=== PATIENT | male | born 1950 | race Caucasian/White ===

== ENCOUNTER 2016-12-20 12:40 | Inpatient (IN) | payer MEDICAID ==
[~2016-12-20] VITALS: Ht 170.2 cm; Wt 66.1 kg
[~2016-12-20 12:40] MED LIST: METO50TA PO; PRED5TAB PO
[2016-12-20 12:57] VITALS: BP 148/60; PULSE 83; RESP 22; TEMP 98.2; O2SAT 96
[2016-12-20 13:48] LABS: AUTOMATED NEUTROPHIL # 8.1 TH/MM3 (1.8-7.7); BASOPHIL # 0.1 TH/MM3 (0-0.2); BASOPHIL % 0.6 % (0.0-2.0); EOSINOPHIL # 0.2 TH/MM3 (0-0.4); EOSINOPHIL % 1.7 % (0.0-4.0); HEMATOCRIT 30.5 % (39.0-51.0); HEMO FLAGS DIFF FINAL; LYMPH % 5.4 % (9.0-44.0); LYMPHOCYTE # 0.5 TH/MM3 (1.0-4.8); MEAN CELL VOLUME 99.8 FL (80.0-100.0); MEAN CORPUSCULAR HEMOGLOBIN 33.4 PG (27.0-34.0); MEAN CORPUSCULAR HGB CONC 33.5 % (32.0-36.0); MONO % 8.3 % (0.0-8.0); PLATELET COUNT 262 TH/MM3 (150-450); RED BLOOD COUNT 3.05 MIL/MM3 (4.50-5.90); RED CELL DISTRIBUTION WIDTH 15.5 % (11.6-17.2); WHITE BLOOD COUNT 9.7 TH/MM3 (4.0-11.0)
[2016-12-20 14:04] LABS: ANION GAP 14 MEQ/L (5-15); AST (GOT) 52 U/L (15-37); BICARBONATE 24.6 MEQ/L (21.0-32.0); BLOOD UREA NITROGEN 39 MG/DL (7-18); CHLORIDE 99 MEQ/L (98-107); GLOMERULAR FILTRATION RATE 66 ML/MIN (>89); SODIUM (NA) 138 MEQ/L (136-145)
[2016-12-20 14:08] LABS: ALKALINE PHOSPHATASE 77 U/L (45-117); ALT (GPT) 23 U/L (12-78); TOTAL BILIRUBIN ADULT 0.6 MG/DL (0.2-1.0)
--- NOTE | 2016-12-20 14:08 | PD ---
HPI Chief Complaint: Pain: Acute or Chronic Time Seen by Provider: 14:08 Travel History International Travel<30 days: No Contact w/Intl Traveler<30days: No Traveled to known affect area: No History of Present Illness HPI 66-year-old male with history of A. fib, hypertension, alcoholism, presents to the emergency department for evaluation of redness, swelling, and painful joints. Patient states that he does have a history of gout but this seems to be worse than typical exacerbation. Patient reports inability to ambulate secondary to the pain. He states his had subjective fever and chills. He has overall not felt well. Denies any nausea or vomiting. No focal deficits. No recollection of injury. He has no other symptoms to report at this time. [facility] Past Medical History Atrial Fibrillation: Yes Gout: Yes (new) Hypertension: Yes Tetanus Vaccination: < 5 Years Past Surgical History Abdominal Surgery: Yes (hernia repair ) Other Surgery: Yes (DVT R leg with filter ) Social History Alcohol Use: Yes ("750 ml of vodka daily" ) Tobacco Use: No Allergies-Medications (Allergen,Severity, Reaction): Coded Allergies: No Known Allergies (Unverified , 12/20/16) Reported Meds & Prescriptions Reported Meds & Active Scripts Active Review of Systems Except as stated in HPI: all other systems reviewed are Neg Physical Exam Narrative GENERAL: Unkempt male patient, lying in bed in no acute distress SKIN: Warm and dry. Erythema and edema around the right hallux and on the PIP of the right second digit. There is palpable effusion of the left knee. There is also an erythematous painful nodule on the right second digit. No fluctuation. Patient has multiple scabbed lesions on the bilateral lower extremities. HEAD: Atraumatic. Normocephalic. EYES: Pupils equal and round. No scleral icterus. No injection or drainage. ENT: No nasal bleeding or discharge. Mucous membranes pink and moist. NECK: Trachea midline. No JVD. CARDIOVASCULAR: Regular rate and rhythm. No murmur appreciated. RESPIRATORY: No accessory muscle use. Diminished to auscultation. Breath sounds equal bilaterally. GASTROINTESTINAL: Abdomen soft, non-tender, nondistended. Hepatic and splenic margins not palpable. MUSCULOSKELETAL: No obvious deformities. No clubbing. No cyanosis. No edema. NEUROLOGICAL: Awake and alert. No obvious cranial nerve deficits. Motor grossly within normal limits. Normal speech. Data Data Last Documented VS Vital Signs Date Time Temp Pulse Resp B/P Pulse Ox O2 Delivery O2 Flow Rate FiO2 12/20/16 12:57 98.2 83 22 148/60 96 Orders Complete Blood Count With Diff (12/20/16 13:22) Comprehensive Metabolic Panel (12/20/16 13:22) Lactic Acid Sepsis Protocol (12/20/16 13:22) Iv Access Insert/Monitor (12/20/16 13:22) Uric Acid (12/20/16 13:55) Westergren Sedimentation Rate (12/20/16 13:55) Blood Culture (12/20/16 13:55) Labs Laboratory Tests Test 12/20/16 13:23 White Blood Count 9.7 TH/MM3 Red Blood Count 3.05 MIL/MM3 Hemoglobin 10.2 GM/DL Hematocrit 30.5 % Mean Corpuscular Volume 99.8 FL Mean Corpuscular Hemoglobin 33.4 PG Mean Corpuscular Hemoglobin 33.5 % Concent Red Cell Distribution Width 15.5 % Platelet Count 262 TH/MM3 Mean Platelet Volume 10.8 FL Neutrophils (%) (Auto) 84.0 % Lymphocytes (%) (Auto) 5.4 % Monocytes (%) (Auto) 8.3 % Eosinophils (%) (Auto) 1.7 % Basophils (%) (Auto) 0.6 % Neutrophils # (Auto) 8.1 TH/MM3 Lymphocytes # (Auto) 0.5 TH/MM3 Monocytes # (Auto) 0.8 TH/MM3 Eosinophils # (Auto) 0.2 TH/MM3 Basophils # (Auto) 0.1 TH/MM3 CBC Comment DIFF FINAL Differential Comment Erythrocyte Sedimentation Rate GREATER THAN 140 mm/hr Sodium Level 138 MEQ/L Potassium Level 3.0 MEQ/L Chloride Level 99 MEQ/L Carbon Dioxide Level 24.6 MEQ/L Anion Gap 14 MEQ/L Blood Urea Nitrogen 39 MG/DL Creatinine 1.12 MG/DL Estimat Glomerular Filtration 66 ML/MIN Rate Random Glucose 113 MG/DL Lactic Acid Level 2.0 mmol/L Uric Acid 11.7 MG/DL Calcium Level 8.8 MG/DL Total Bilirubin 0.6 MG/DL Aspartate Amino Transf 52 U/L (AST/SGOT) Alanine Aminotransferase 23 U/L (ALT/SGPT) Alkaline Phosphatase 77 U/L Total Protein 6.8 GM/DL Albumin 2.0 GM/DL [facility] Medical Decision Making Medical Screen Exam Complete: Yes Emergency Medical Condition: Yes Medical Record Reviewed: Yes Differential Diagnosis Gout versus septic arthritis versus osteoarthritis versus Narrative Course 66-year-old male presents for evaluation of generalized joint pain, history of gout. Workup is initiated transiently on swallowing. Left ventricle that is available, patient will be transferred and assumed by that provider. Condition: Stable Shari Pacheco Dec 20, 2016 14:08
[2016-12-20 14:55] VITALS: BP 133/78; PULSE 103; PULSE 120; RESP 18; O2SAT 99
[2016-12-20] MEDS ORDERED: SODIUM CHLOR 0.9% 1000 ML INJ 1,000 ML IV SCH ×2 (14:59→15:58)
--- NOTE | 2016-12-20 15:00 | PD ---
Physical Exam Time Seen by Provider: 14:59 Narrative 66-year-old male with a history of atrial fibrillation, hypertension, alcoholism presents to the emergency department for evaluation of leg pain and weakness. Patient seen by provider in ambulance hallway who initiated workup, please see her documentation. The patient states that for the past week he has had pain and weakness in his legs, specifically in his thighs, hips and shoulders. States that he has been laying on the floor for the past week and only been able to get up 1-2 times daily. States that today he was so weak that he could not get up causing him to defecate on himself which is why he called EMS. States that he has had this happen once in the past, states that he does have a history of rheumatoid arthritis and gout. He has swelling in the right foot and in the left knee. He is stating he is not sure how long this has been going on, states he has a prior ligamentous injury to the left knee and that it swells frequently. States that he has gout and sometimes gets swelling in the right foot. He is complaining of chills but denies fever. He denies any chest pain, shortness of breath, lightheadedness, dizziness, nausea, vomiting, diarrhea. The patient is an alcoholic and drinks a half liter of vodka daily, has not yet drink today. He does not have a PCP here in the area, moved here about 9 months ago from [place]. No other complaints. GENERAL: Thin male patient in no acute distress. SKIN: Warm and dry. Sacral ulcer approximately 4 cm in diameter. HEAD: Normocephalic and atraumatic. EYES: No injection, drainage, or hyphema noted. PERRLA. EOMI. ENT: No nasal drainage noted. Oropharynx is clear. NECK: Supple and the trachea is midline. CARDIOVASCULAR: Regular rate and rhythm. RESPIRATORY: Breath sounds are equal bilaterally with no accessory muscle use, wheezing, rhonchi, or crackles. GASTROINTESTINAL: Abdomen is soft, non-tender, and nondistended. MUSCULOSKELETAL: Patient has swelling of the right first MTP with erythema, there is also erythema of the right second toe. Swelling and small effusion of the left knee. Patient has weakness in the hips and shoulders. No obvious deformities, cyanosis, or ecchymosis is present throughout the upper and lower extremities. Patient has full range of motion without any signs of neurovascular compromise. NEUROLOGICAL: Awake, alert, and oriented. Normal speech and gait. Cranial nerves are grossly intact. Data Data Last Documented VS Vital Signs Date Time Temp Pulse Resp B/P Pulse Ox O2 Delivery O2 Flow Rate FiO2 12/20/16 14:55 103 18 133/78 99 Room Air 12/20/16 12:57 98.2 Orders Complete Blood Count With Diff (12/20/16 13:22) Comprehensive Metabolic Panel (12/20/16 13:22) Lactic Acid Sepsis Protocol (12/20/16 13:22) Iv Access Insert/Monitor (12/20/16:22) Uric Acid (12/20/16 13:55) Westergren Sedimentation Rate (12/20/16 13:55) Blood Culture (12/20/16 13:55) Creatine Kinase (Cpk) (12/20/16 14:58) Ankle, Complete ([id number]) (12/20/16 14:58) Foot, Complete ([id number]) (12/20/16 14:58) Knee, Complete (4vws) (12/20/16 14:58) Sodium Chlor 0.9% 1000 Ml Inj (Ns 1000 M (12/20/16 14:59) Metoprolol Tartrate (Lopressor) (12/20/16 15:15) Urinalysis - C+S If Indicated (12/20/16 15:52) Methylprednisolone So Succ Inj (Solumedr (12/20/16 16:00) Sodium Chlor 0.9% 1000 Ml Inj (Ns 1000 M (12/20/16 15:58) Magnesium (Mg) (12/20/16 15:59) Potassium Chloride Eff (K-Lyte Cl Eff) (12/20/16 16:00) Wound Care (12/20/16 16:02) CKMB (12/20/16 13:23) CKMB% (12/20/16 13:23) Labs Laboratory Tests Test 12/20/16 13:23 White Blood Count 9.7 TH/MM3 Red Blood Count 3.05 MIL/MM3 Hemoglobin 10.2 GM/DL Hematocrit 30.5 % Mean Corpuscular Volume 99.8 FL Mean Corpuscular Hemoglobin 33.4 PG Mean Corpuscular Hemoglobin 33.5 % Concent Red Cell Distribution Width 15.5 % Platelet Count 262 TH/MM3 Mean Platelet Volume 10.8 FL Neutrophils (%) (Auto) 84.0 % Lymphocytes (%) (Auto) 5.4 % Monocytes (%) (Auto) 8.3 % Eosinophils (%) (Auto) 1.7 % Basophils (%) (Auto) 0.6 % Neutrophils # (Auto) 8.1 TH/MM3 Lymphocytes # (Auto) 0.5 TH/MM3 Monocytes # (Auto) 0.8 TH/MM3 Eosinophils # (Auto) 0.2 TH/MM3 Basophils # (Auto) 0.1 TH/MM3 CBC Comment DIFF FINAL Differential Comment Erythrocyte Sedimentation Rate GREATER THAN 140 mm/hr Sodium Level 138 MEQ/L Potassium Level 3.0 MEQ/L Chloride Level 99 MEQ/L Carbon Dioxide Level 24.6 MEQ/L Anion Gap 14 MEQ/L Blood Urea Nitrogen 39 MG/DL Creatinine 1.12 MG/DL Estimat Glomerular Filtration 66 ML/MIN Rate Random Glucose 113 MG/DL Lactic Acid Level 2.0 mmol/L Uric Acid 11.7 MG/DL Calcium Level 8.8 MG/DL Magnesium Level 1.8 MG/DL Total Bilirubin 0.6 MG/DL Aspartate Amino Transf 52 U/L (AST/SGOT) Alanine Aminotransferase 23 U/L (ALT/SGPT) Alkaline Phosphatase 77 U/L Total Creatine Kinase 358 U/L Creatine Kinase MB 1.0 NG/ML Creatine Kinase MB % 0.3 % Total Protein 6.8 GM/DL Albumin 2.0 GM/DL [facility] Supervised Visit with [facility]: No Differential Diagnosis Rheumatoid arthritis versus polymyalgia rheumatica versus polymyositis versus rhabdomyolysis Narrative Course 66-year-old male presents to the emergency department by EMS for evaluation of weakness and joint pain. Patient is afebrile, vital signs are stable. Patient' s heart rate was initially 84 bpm but is now 103 bpm. He missed his dose of metoprolol this morning for his A. fib and therefore we will give him his oral dose of 50 mg of metoprolol now. The patient has weakness to his hips and shoulders with myalgias specifically in the thighs. IV access is obtained, labs of been drawn and sent. CBC shows anemia with a hemoglobin of 10.2, hematocrit 30.5. This is improved from his previous lab values. Sedimentation rate is greater than 140. CMP shows hypokalemia with a potassium of 3.0. Otherwise unremarkable. Lactic acid is 2.0. Uric acid is elevated at 11.7. CPK slightly elevated at 358. X-ray imaging of the right ankle is negative for any acute abnormalities. X-ray of the right foot is negative for any acute abnormalities. X-ray of the left knee shows joint effusion, otherwise unremarkable. The patient has polymyalgia specifically with weakness in shoulders and hip girdle with a significantly elevated sed rate greater than 140. He may have polymyalgia rheumatica or another rheumatologic condition. He is unable to ambulate due to his weakness and will need to be admitted for further evaluation and physical therapy, likely with placement to SNF. I discussed the case with my attending physician Dr. Schilling who is aware of the patients history, physical examination findings, and treatment plan. Physician Communication Physician Communication I spoke with Dr. Torres [facility] who agrees to admit the patient to his service. Diagnosis Primary Impression: Weakness Additional Impressions: Polymyalgia rheumatica syndrome Inability to ambulate due to multiple joints Sacral decubitus ulcer Qualified Code: L89.153 - Decubitus ulcer of sacral region, stage 3 Admitting Information Admitting Physician Requests: Admit Condition: Stable Miri Mari Dec 20, 2016 15:00
[2016-12-20] MEDS ORDERED: METO50TA PO (15:06)
[2016-12-20] MEDS ORDERED: METOPROLOL TARTRATE 50 MG TAB PO ONE (15:15)
--- NOTE | 2016-12-20 15:49 | RADRPT ---
EXAM DATE/TIME: 12/20/2016 15:34 [facility] COMPARISON: No previous studies available for comparison. INDICATIONS : Left knee pain and swelling. MEDICAL HISTORY : Stroke. SURGICAL HISTORY : Cartilage removed. ENCOUNTER: Initial ACUITY: 1 month PAIN SCORE: 5/10 LOCATION: Left Knee. FINDINGS: There is narrowing of the lateral joint space. There is hypertrophic change at the medial, lateral, a nd patellofemoral compartments. There is mild effusion. An acute fracture is not seen. CONCLUSION: Degenerative change and a mild effusion. J Luis Talamantes MD on December 20, 2016 at 15:47 Board Certified Radiologist. This report was verified electronically.
--- NOTE | 2016-12-20 15:52 | RADRPT ---
EXAM DATE/TIME: 12/20/2016 15:31 [facility] COMPARISON: ANKLE RIGHT COMPLETE ([id number]), July 24, 2016, 12:37. INDICATIONS : Right ankle swelling and pain. MEDICAL HISTORY : Stroke. SURGICAL HISTORY : None. ENCOUNTER: Initial ACUITY: 1 month PAIN SCORE: 5/10 LOCATION: Right ankle. FINDINGS: No fracture seen. The ankle is normally aligned. There is hypertrophic change seen inferior to the me dial malleolus and anterior to the ankle joint. This was present previously. There is soft tissue swe lling at the ankle. There are calcaneal spurs at the plantar aponeurosis and Achilles attachment site s. There is hypertrophic change of the dorsal midfoot. CONCLUSION: No acute bony abnormality is seen. There is chronic change described above. There is soft tissue swel ling. J Luis Talamantes MD on December 20, 2016 at 15:48 Board Certified Radiologist. This report was verified electronically.
--- NOTE | 2016-12-20 15:57 | RADRPT ---
EXAM DATE/TIME: 12/20/2016 15:29 [facility] COMPARISON: No previous studies available for comparison. INDICATIONS : Right foot pain and swelling. No prior trauma. MEDICAL HISTORY : Stroke. SURGICAL HISTORY : None. ENCOUNTER: Initial ACUITY: 1 month PAIN SCORE: 5/10 LOCATION: Right foot. FINDINGS: There is a hallux valgus deformity and joint space narrowing at the first MTP joint. There is some hy pertrophic change at the dorsal midfoot. Calcaneal spurs are seen at the plantar aponeurosis attachme nt site and to lesser degree the Achilles attachment site. There is hypertrophic change anterior to t he ankle. Soft tissue swelling is seen at the foot and ankle. CONCLUSION: Chronic bony change as described above. An acute bony injury is not seen. J Luis Talamantes MD on December 20, 2016 at 15:53 Board Certified Radiologist. This report was verified electronically.
[2016-12-20] MEDS ORDERED: methylPREDNISolone SOD SUCC 125 MG/2 ML VIAL IV PUSH ONE (16:00)
[2016-12-20 17:00] VITALS: BP 121/80; PULSE 88; RESP 16; O2SAT 97
[2016-12-20] MEDS: POTASSIUM CHLORIDE 25 MEQ EFFERVESCENT TAB PO SCH (17:05)
[2016-12-20] MEDS ORDERED: POTASSIUM CHLORIDE 20 MEQ CONTROLLED RELEASE TAB PO ONE (17:45)
--- NOTE | 2016-12-20 17:56 | HHI.HP ---
[facility] No Primary Care Physician Admission Diagnosis Weakness, Possible Polymyalgia Rheumatica Diagnoses: (1) Weakness Diagnosis: Principal (2) Polymyalgia rheumatica syndrome Diagnosis: Principal Chief Complaint: ' I can't stand on my feet'. Travel History International Travel<30 Days: No Contact w/Intl Traveler <30 Da: No Traveled to Known Affected Are: No History of Present Illness patient is a 66 y/o male with history of atrial fibrillation, hypertension and gout, presented to ER with generalized weakness. he says that he was at his usual state of health till about ten days ago when he started to have some weakness of the right lower and upper extremities. he says that he wasn't able to stand up. he's also complaining of some weakness of the both shoulders. he denies any fever or headache. but had some chills at home. he says that he's had on and off flare up of his gout but he noticed some redness of the right great toe a few days ago. Review of Systems Constitutional: COMPLAINS OF: Fatigue, Chills, DENIES: Fever, Weight loss, Night Sweats Eyes: DENIES: Blurred vision, Diplopia, Vision loss, Double Vision Ears, nose, mouth, throat: DENIES: Tinnitus, Vertigo, Throat pain, Epistaxis Respiratory: DENIES: Apneas, Cough, Snoring, Wheezing, Hemoptysis, Sputum production, Shortness of breath Cardiovascular: DENIES: Chest pain, Palpitations, Syncope, Dyspnea on Exertion , PND, Lower Extremity Edema, Orthopnea, Claudication Gastrointestinal: DENIES: Abdominal pain, Black stools, Bloody stools, Constipation, Diarrhea, Nausea, Vomiting, Difficulty Swallowing, Anorexia Genitourinary: DENIES: Urinary frequency, Urgency, Hematuria, Dysuria Musculoskeletal: DENIES: Joint pain, Muscle aches, Stiffness, Joint Swelling Integumentary: DENIES: Rash Neurologic: DENIES: Abnormal gait, Headache, Localized weakness, Paresthesias, Seizures, Speech Problems, Tremor, Poor Balance Psychiatric: DENIES: Anxiety, Confusion, Mood changes, Depression, Hallucinations, Agitation, Suicidal Ideation, Homicidal Ideation, Delusions Past Family Social History Past Medical History atrial fibrillation hypertension Past Surgical History hernia repair/ knee surgery. Reported Medications metoprolol Allergies: Coded Allergies: No Known Allergies (Unverified , 12/20/16) Active Ordered Medications Current Medications Sodium Chloride (NS 1000 ml Inj) 1,000 ml @ 1,000 mls/hr Q1H IV Last administered on 12/20/16 15:05; Start 12/20/16 at 14:59; Stop 12/20/16 at 15:58 ; Status DC Metoprolol Tartrate (Lopressor) 50 mg ONCE ONCE PO Last administered on 15:54; Start 12/20/16 at 15:15; Stop 12/20/16 at 15:16; Status DC Methylprednisolone Sodium Succinate 125 mg 125 mg ONCE ONCE IV PUSH Last administered on 12/20/16 17:04; Start 12/20/16 at 16:00; Stop 12/20/16 at 16:01 ; Status DC Sodium Chloride (NS 1000 ml Inj) 1,000 ml @ 1,000 mls/hr Q1H IV Last administered on 12/20/16 17:04; Start 12/20/16 at 15:58; Stop 12/20/16 at 16:57 ; Status DC Potassium Bicarb/ Potassium Chloride (K-Lyte Cl Eff) 25 meq ONCE PO Last administered on 12/20/16 17:05; Start 12/20/16 at 16:00 Social History doesn't smoke. drinks daily. Physical Exam Vital Signs Vital Signs Date Time Temp Pulse Resp B/P Pulse Ox O2 Delivery O2 Flow Rate FiO2 12/20/16 17:00 88 16 121/80 97 Room Air 12/20/16 14:55 103 18 133/78 99 Room Air 12/20/16 14:45 73 16 12/20/16 12:57 98.2 83 22 148/60 96 Physical Exam GENERAL: This is a well-nourished, well-developed patient, in no apparent distress. SKIN: No rashes, ecchymoses or lesions. Cool and dry. HEAD: Atraumatic. Normocephalic. No temporal or scalp tenderness. EYES: Pupils equal round and reactive. Extraocular motions intact. No scleral icterus. No injection or drainage. ENT: Nose without bleeding, purulent drainage or septal hematoma. Throat without erythema, tonsillar hypertrophy or exudate. Uvula midline. Airway patent. NECK: Trachea midline. No JVD or lymphadenopathy. Supple, nontender, no meningeal signs. CARDIOVASCULAR: Regular rate and rhythm without murmurs, gallops, or rubs. RESPIRATORY: Clear to auscultation. Breath sounds equal bilaterally. No wheezes , rales, or rhonchi. GASTROINTESTINAL: Abdomen soft, non-tender, nondistended. No hepato-splenomegaly , or palpable masses. No guarding. MUSCULOSKELETAL: erythema and swelling of the right great toe. NEUROLOGICAL: Awake and alert. Cranial nerves II through XII intact. Motor and sensory grossly within normal limits. Five out of 5 muscle strength in all muscle groups. Normal speech. Laboratory Laboratory Tests Test 12/20/16 13:23 White Blood Count 9.7 Red Blood Count 3.05 Hemoglobin 10.2 Hematocrit 30.5 Mean Corpuscular Volume 99.8 Mean Corpuscular Hemoglobin 33.4 Mean Corpuscular Hemoglobin 33.5 Concent Red Cell Distribution Width 15.5 Platelet Count 262 Mean Platelet Volume 10.8 Neutrophils (%) (Auto) 84.0 Lymphocytes (%) (Auto) 5.4 Monocytes (%) (Auto) 8.3 Eosinophils (%) (Auto) 1.7 Basophils (%) (Auto) 0.6 Neutrophils # (Auto) 8.1 Lymphocytes # (Auto) 0.5 Monocytes # (Auto) 0.8 Eosinophils # (Auto) 0.2 Basophils # (Auto) 0.1 CBC Comment DIFF FINAL Differential Comment Erythrocyte Sedimentation Rate GREATER THAN 140 Sodium Level 138 Potassium Level 3.0 Chloride Level 99 Carbon Dioxide Level 24.6 Anion Gap 14 Blood Urea Nitrogen 39 Creatinine 1.12 Estimat Glomerular Filtration 66 Rate Random Glucose 113 Lactic Acid Level 2.0 Uric Acid 11.7 Calcium Level 8.8 Magnesium Level 1.8 Total Bilirubin 0.6 Aspartate Amino Transf 52 (AST/SGOT) Alanine Aminotransferase 23 (ALT/SGPT) Alkaline Phosphatase 77 Total Creatine Kinase 358 Creatine Kinase MB 1.0 Creatine Kinase MB % 0.3 Total Protein 6.8 Albumin 2.0 Date/Time Procedure Status Source Growth 12/20/16 14:00 Aerobic Blood Culture Received Blood Peripheral Pending 12/20/16 14:00 Anaerobic Blood Culture Received Blood Peripheral Pending Result Diagram: 12/20/16 1323 12/20/16 1323 Assessment and Plan Assessment and Plan A/P - proximal upper and lower extremity weakness with elevated ESR- suspect PMR received a dose of IV steroid- will continue with po prednisone and monitor the response will consult PT and case management. will consult neurology.\ -gouty arthritis of the right great toe- uric acid 11; started on prednisone- continue with pain control. -atrial fibrillation; resume metoprolol- not on anticoagulation likely due to alcohol abuse- will monitor -hypertension; on metoprolol- will monitor and adjust the regimen as needed. -wound on the buttock; will consult wound care -hypokalemia; will replace and monitor -alcohol abuse; will start thiamine and multivitamin- ativan as needed- watch for DT's counselled on drinking cessation. -DVT prophylaxis; with Lovenox Discussed Condition With ER physician and the patient. Physician Certification 2 Midnight Certification Type: Admission for Inpatient Services Order for Inpatient Services The services are ordered in accordance with Medicare regulations or non- Medicare payer requirements, as applicable. In the case of services not specified as inpatient-only, they are appropriately provided as inpatient services in accordance with the 2-midnight benchmark. Estimated LOS (days): 2 days is the estimated time the patient will need to remain in the hospital, assuming treatment plan goals are met and no additional complications. Post-Hospital Plan: Not yet determined Jhonny Dsouza MD Dec 20, 2016 17:56
[2016-12-20] MEDS ORDERED: ACETAMINOPHEN 325 MG TAB PO PRN (18:00)
[2016-12-20] MEDS ORDERED: ACETAMINOPHEN/HYDROcodone 325 MG/5 MG TAB PO PRN (18:00)
[2016-12-20] MEDS ORDERED: LORazepam 2 MG/ML VIAL IV PUSH PRN (18:00)
[2016-12-20] MEDS ORDERED: ONDANSETRON HCL 4 MG/2 ML VIAL IV PUSH PRN (18:00)
[2016-12-20] MEDS: THIAMINE HCL 100 MG TAB PO SCH (18:37)
[2016-12-20 20:01] VITALS: BP 111/70; PULSE 82; RESP 16; TEMP 98.2; O2SAT 95
[2016-12-20] MEDS: METOPROLOL TARTRATE 50 MG TAB PO SCH (20:56)
[2016-12-20 22:18] LABS: RHEUMATOID FACTOR TRIGGER LESS THAN 10.0 IU/ML (0.0-14.9)
[2016-12-21] VITALS: BP 110/87; PULSE 78; RESP 18; TEMP 98.3; O2SAT 95
[2016-12-21 04:00] VITALS: BP 110/62; PULSE 64; RESP 18; TEMP 98.6; O2SAT 96
[2016-12-21 07:38] LABS: BICARBONATE 23.4 MEQ/L (21.0-32.0); POTASSIUM 3.8 MEQ/L (3.5-5.1)
[2016-12-21 08:00] VITALS: BP 132/80; PULSE 68; RESP 18; TEMP 98; O2SAT 97
[2016-12-21] MEDS: METOPROLOL TARTRATE 50 MG TAB PO SCH ×2 (09:43→21:28)
[2016-12-21] MEDS: MULTIVITAMIN TAB PO SCH (09:43)
[2016-12-21] MEDS: ENOXAPARIN SODIUM 40 MG/0.4 ML SYRINGE SQ SCH (09:43)
[2016-12-21] MEDS: THIAMINE HCL 100 MG TAB PO SCH (09:43)
[2016-12-21] MEDS: predniSONE 5 MG TAB PO SCH (09:43)
[2016-12-21] MEDS ORDERED: INFLUENZA VIRUS VACCINE (QUADRIVALENT) 0.5 ML SYR IM ONE (10:00)
--- NOTE | 2016-12-21 11:35 | HHI.PR ---
Subjective Remarks resting comfortably with no distress. still with some weakness of both legs and shoulders. no new complaints. Objective Vitals Vital Signs Date Time Temp Pulse Resp B/P Pulse Ox O2 Delivery O2 Flow Rate FiO2 12/21/16 04:00 98.6 64 18 110/62 96 12/21/16 00:00 98.3 78 18 110/87 95 12/20/16 20:01 98.2 82 16 111/70 95 12/20/16 17:00 88 16 121/80 97 Room Air 12/20/16 14:55 103 18 133/78 99 Room Air 12/20/16 14:45 73 16 12/20/16 12:57 98.2 83 22 148/60 96 I/O 12/20/16 12/20/16 12/20/16 12/21/16 12/21/16 12/21/16 07:00 15:00 23:00 07:00 15:00 23:00 Intake Total 500 ml 500 ml Balance 500 ml 500 ml Intake Oral 500 ml 500 ml # Voids 2 4 # Bowel Movements 0 0 Result Diagram: 12/20/16 1323 12/21/16 0639 Imaging Last Impressions Knee X-Ray 12/20/161457 Signed Impressions: Service Date/Time: Tuesday, December 20, 2016 15:34 - CONCLUSION: Degenerative change and a mild effusion. J Luis Talamantes MD Foot X-Ray 12/20/16 1458 Signed Impressions: Service Date/Time: Tuesday, December 20, 2016 15:29 - CONCLUSION: Chronic bony change as described above. An acute bony injury is not seen. J uLis Talamantes MD Ankle X-Ray 12/20/16 1458 Signed Impressions: Service Date/Time: Tuesday, December 20, 2016 15:31 - CONCLUSION: No acute bony abnormality is seen. There is chronic change described above. There is soft tissue swelling. J Luis Talamantes MD Objective Remarks GENERAL: This is a well-nourished, well-developed patient, in no apparent distress. CARDIOVASCULAR: Regular rate and regular rhythm without murmurs, gallops, or rubs. RESPIRATORY: Clear to auscultation. Breath sounds equal bilaterally. No wheezes , rales, or rhonchi. GASTROINTESTINAL: Abdomen soft, non-tender, nondistended. Normal, active bowel sounds MUSCULOSKELETAL: Extremities without clubbing, cyanosis, or edema. NEURO: Alert & Oriented x4 to person, place, time, situation. Moves all ext x4 Procedures none Medications and IVs Current Medications Sodium Chloride (NS 1000 ml Inj) 1,000 ml @ 1,000 mls/hr Q1H IV Last administered on 12/20/16 15:05; Start 12/20/16 at 14:59; Stop 12/20/16 at 15:58 ; Status DC Metoprolol Tartrate (Lopressor) 50 mg ONCE ONCE PO Last administered on 15:54; Start 12/20/16 at 15:15; Stop 12/20/16 at 15:16; Status DC Methylprednisolone Sodium Succinate 125 mg 125 mg ONCE ONCE IV PUSH Last administered on 12/20/16 17:04; Start 12/20/16 at 16:00; Stop 12/20/16 at 16:01 ; Status DC Sodium Chloride (NS 1000 ml Inj) 1,000 ml @ 1,000 mls/hr Q1H IV Last administered on 12/20/16 17:04; Start 12/20/16 at 15:58; Stop 12/20/16 at 16:57 ; Status DC Potassium Bicarb/ Potassium Chloride (K-Lyte Cl Eff) 25 meq ONCE PO Last administered on 12/20/16 17:05; Start 12/20/16 at 16:00 Prednisone (Deltasone) 15 mg DAILY PO Last administered on 12/21/16 09:43; Start 12/21/16 at 09:00 Potassium Chloride (KCl) 40 meq ONCE ONCE PO Last administered on 12/20/16 18 :37; Start 12/20/16 at 17:45; Stop 12/20/16 at 17:49; Status DC Enoxaparin Sodium (Lovenox Inj) 40 mg Q24H SQ Last administered on 12/21/16 09 :43; Start 12/21/16 at 09:00 Metoprolol Tartrate (Lopressor) 50 mg BID PO Last administered on 12/21/16 09: 43; Start 12/20/16 at 21:00 Thiamine HCl (Vitamin B1) 100 mg DAILY PO Last administered on 12/21/16 09:43 ; Start 12/20/16 at 18:00 Multivitamins (Theragran) 1 tab DAILY PO Last administered on 12/21/16t 09:43; Start 12/21/16 at 09:00 Lorazepam (Ativan Inj) 1 mg Q4H PRN IV PUSH ANXIETY; Start 12/20/16 at 18:00 Ondansetron HCl (Zofran Inj) 4 mg Q8HR PRN IV PUSH NAUSEA; Start 12/20/16 at 18 :00 Acetaminophen (Tylenol) 650 mg Q4H PRN PO FEVER/ PAIN < 5; Start 12/20/16 at 18 :00 Acetaminophen/ Hydrocodone Bitart ([place] 5-325 Mg) 1 tab Q4H PRN PO PAIN > 5. ; Start 12/20/16 at 18:00 Influenza Virus Vaccine (Flu (Quadrivalent) Vaccine Inj) 0.5 ml ONCE ONCE IM ; Start 12/21/16 at 10:00; Stop 12/21/16 at 10:01; Status DC A/P Assessment and Plan A/P - proximal upper and lower extremity weakness with elevated ESR- suspect PMR? received a dose of IV steroid in ER- will continue with po prednisone and monitor the response consulted PT and case management. consulted neurology. -gouty arthritis of the right great toe- uric acid 11; started on prednisone- improving. continue with pain control. -atrial fibrillation; resumed metoprolol- not on anticoagulation likely due to alcohol abuse- will monitor -hypertension; on metoprolol- will monitor and adjust the regimen as needed. -wound on the buttock; consulted wound care -hypokalemia; replaced. -alcohol abuse; continue thiamine and multivitamin- ativan as needed- watch for DT's counselled on drinking cessation. -DVT prophylaxis; with Jhonny Christy MD Dec 21, 2016 11:35
[2016-12-21 12:00] VITALS: BP 100/55; PULSE 68; RESP 18; TEMP 97.6; O2SAT 95
--- NOTE | 2016-12-21 14:06 | MB ---
cc: NITHIN BOSS M.D. DATE OF CONSULTATION: 12/21/2016 HISTORY OF PRESENT ILLNESS This 66-year-old came in neurological consultation in regards to generalized weakness. The patient is somewhat vague. He has a history of atrial fibrillation and hypertension and he takes metoprolol. Apparently, not on any blood thinners. He lives in [facility] and he is here visiting. For the past few days he has had some generalized weakness, fatigue. The chart indicates that his symptoms may have started involving the right leg and then both arms, though he describes extreme fatigue or tiredness diffusely. He apparently uses alcohol, though he denied this to me. He describes that he is here in a motel just for vacation. He is retired. EXAMINATION Exam shows the patient to be asleep, awakened and then he became reasonably alert, oriented, moving all extremities in a grossly symmetrical manner. He is able to raise arms, legs without any obvious focal weakness. There is some arthritic joint disease reportedly from gout. Reflexes were diminished but present throughout. Plantar responses probably flexor bilaterally. Ocular movements and visual simeon full. LABORATORY DATA The laboratory data includes a sed rate greater than 140, WBC 9.7, hemoglobin 10.2, platelets 262. CPK mildly elevated to 358, calcium 8.0, uric acid 11.7, glucose 166, sodium, potassium normal, BUN 38, creatinine 0.98. ASSESSMENT Generalized weakness, elevated sed rate, apparent gouty arthritic disease. Certainly agree with the diagnosis of polymyalgia rheumatica. With the vagueness of the symptoms, the atrial fibrillation, the fact that he may have started symptoms initially on the right side. Obtain an MRI brain without contrast to be sure there is no cerebrovascular disease as well. Otherwise, medical care and physical therapy. Thank you for asking us to participate in his care. MD DIVINA Cisneros/TLL /1:46 PM /1:54 PM
[2016-12-21 16:00] VITALS: BP 113/68; PULSE 78; RESP 18; TEMP 97.2; O2SAT 98
[2016-12-21] MEDS: POTASSIUM CHLORIDE 25 MEQ EFFERVESCENT TAB PO SCH (18:26)
[2016-12-21 20:00] VITALS: BP 110/70; PULSE 77; RESP 18; TEMP 97.9; O2SAT 97
--- NOTE | 2016-12-21 20:20 | RADRPT ---
EXAM DATE/TIME: 12/21/2016 19:45 [facility] COMPARISON: MRI BRAIN W/O CONTRAST, July 25, 2016, 12:12. INDICATIONS : Bilateral weakness. MEDICAL HISTORY : Atrial fibrillation, Gout. SURGICAL HISTORY : Umbilical hernia repair. Total knee replacement, left. Filter in right leg for DVT. ENCOUNTER: Initial ACUITY: 1 day PAIN SCORE: LOCATION: Bilateral upper quadrant and lower quadrant TECHNIQUE: Multiplanar, multisequence MRI of the brain was performed without contrast. FINDINGS: There is no evidence for acute infarction on diffusion weighted imaging. There is mild atrophy which is stable. Minimal foci of increased signal on flair images in the bilateral centrum semiovale and pe riventricular white matter, stable most likely related to minimal microvascular ischemic disease. No signs of hemorrhage or mass. CONCLUSION: No significant change has occurred. Cooper Childers MD on December 21, 2016 at 20:18 Board Certified Radiologist. This report was verified electronically.
[2016-12-22] VITALS: BP 113/72; PULSE 77; RESP 18; TEMP 97.9; O2SAT 96
[2016-12-22 04:00] VITALS: BP 115/72; PULSE 80; RESP 18; TEMP 98.1; O2SAT 96
--- NOTE | 2016-12-22 06:25 | HHI.PR ---
Review/Management Daily Summary 12/22 seen briefly this am mri seen results no further neuro intervention please call if needed Subjective Subjective Comments No acute neuro events reported No headache Active Medications Current Medications Medications (Trade) Dose Ordered Sig/Brittani Route Start Time Stop Time Status Last Admin (K-Lyte Cl Eff) 25 meq ONCE PO 12/20/16 16:00 12/21/16 18:26 (Deltasone) 15 mg DAILY PO 12/21/16 09:00 12/21/16 09:43 (Lovenox Inj) 40 mg Q24H SQ 12/21/16 09:00 12/21/16 09:43 (Lopressor) 50 mg BID PO 12/20/16 21:00 12/21/16 21:28 (Vitamin B1) 100 mg DAILY PO 12/20/16 18:00 12/21/16 09:43 (Theragran) 1 tab DAILY PO 12/21/16 09:00 12/21/16 09:43 (Ativan Inj) 1 mg Q4H PRN IV PUSH 12/20/16 18:00 12/21/16 18:59 (Zofran Inj) 4 mg Q8HR PRN IV PUSH 12/20/16 18:00 (Tylenol) 650 mg Q4H PRN PO 12/20/16 18:00 ([place] 5-325 Mg) 1 tab Q4H PRN PO 12/20/16 18:00 Allergies Allergies Coded Allergies No Known Allergies (Unverified12/20/16) Exam I&O / VS 12/21/16 12/21/16 12/22/16 15:00 23:00 07:00 Intake Total 480 ml 240 ml 120 ml Output Total 300 ml 275 ml Balance 180 ml 240 ml -155 ml Intake Oral 480 ml 240 ml 120 ml Output Urine Total 300 ml 275 ml # Bowel Movements 0 Vital Signs Date Time Temp Pulse Resp B/P Pulse Ox O2 Delivery O2 Flow Rate FiO2 12/22/16 04:00 98.1 80 18 115/72 96 12/22/16 00:00 97.9 77 18 113/72 96 12/21/16 20:00 97.9 77 18 110/70 97 12/21/16 16:00 97.2 78 18 113/68 98 12/21/16 12:00 97.6 68 18 100/55 95 12/21/16 08:00 98.0 68 18 132/80 97 Objective Radiology Results Last 48 hours Impressions Brain MRI 12/21/16 0000 Signed Impressions: Service Date/Time: Wednesday, December 21, 2016 19:45 - CONCLUSION: No significant change has occurred. Cooper Childers MD Knee X-Ray 12/20/16 1458 Signed Impressions: Service Date/Time: Tuesday, December 20, 2016 15:34 - CONCLUSION: Degenerative change and a mild effusion. J Luis Talamantes MD Foot X-Ray 12/20/16 1458 Signed Impressions: Service Date/Time: Tuesday, December 20, 2016 15:29 - CONCLUSION: Chronic bony change as described above. An acute bony injury is not seen. J Luis Talamantes MD Ankle X-Ray 12/20/16 1458 Signed Impressions: Service Date/Time: Tuesday, December 20, 2016 15:31 - CONCLUSION: No acute bony abnormality is seen. There is chronic change described above. There is soft tissue swelling. J Luis Talamantes MD Micro and Labs Laboratory Tests Test 12/21/16 06:39 Sodium Level 139 Potassium Level 3.8 Chloride Level 106 Carbon Dioxide Level 23.4 Anion Gap 10 Blood Urea Nitrogen 38 Creatinine 0.98 Estimat Glomerular Filtration 77 Rate Random Glucose 166 Calcium Level 8.0 Date/Time Procedure Status Source Growth 12/20/16 14:00 Aerobic Blood Culture - Preliminary Resulted Blood Peripheral NO GROWTH IN 1 DAY 12/20/16 14:00 Anaerobic Blood Culture - Preliminary Resulted Blood Peripheral NO GROWTH IN 1 DAY Imtiaz Byrne MD Dec 22, 2016 06:25
[2016-12-22 08:00] VITALS: BP 122/74; PULSE 81; RESP 20; TEMP 97.7; O2SAT 95
[2016-12-22] MEDS: MULTIVITAMIN TAB PO SCH (08:02)
[2016-12-22] MEDS: THIAMINE HCL 100 MG TAB PO SCH (08:02)
[2016-12-22] MEDS: ENOXAPARIN SODIUM 40 MG/0.4 ML SYRINGE SQ SCH (08:02)
[2016-12-22] MEDS: predniSONE 5 MG TAB PO SCH (08:02)
[2016-12-22] MEDS: METOPROLOL TARTRATE 50 MG TAB PO SCH (08:02)
--- NOTE | 2016-12-22 08:37 | HHI.PR ---
Subjective Remarks Follow-up PMR/bilateral lower extremities weakness 12/22/16-patient seen and examined, although he reports some improvement of lower extremities weakness continued to depend on walker for ambulation. No acute event overnight. Vitals remain stable. Objective Vitals Vital Signs Date Time Temp Pulse Resp B/P Pulse Ox O2 Delivery O2 Flow Rate FiO2 12/22/16 04:00 98.1 80 18 115/72 96 12/22/16 00:00 97.9 77 18 113/72 96 12/21/16 20:00 97.9 77 18 110/70 97 12/21/16 16:00 97.2 78 18 113/68 98 12/21/16 12:00 97.6 68 18 100/55 95 I/O 12/21/16 12/21/16 12/21/16 12/22/16 12/22/16 12/22/16 07:00 15:00 23:00 07:00 15:00 23:00 Intake Total 500 ml 480 ml 240 ml 120 ml Output Total 300 ml 275 ml Balance 500 ml 180 ml 240 ml -155 ml Intake Oral 500 ml 480 ml 240 ml 120 ml Output Urine Total 300 ml 275 ml # Voids 4 # Bowel Movements 0 0 Result Diagram: 12/20/16 1323 12/21/16 0639 Imaging Last Impressions Brain MRI 12/21/16 0000 Signed Impressions: Service Date/Time: Wednesday, December 21, 2016 19:45 - CONCLUSION: No significant change has occurred. Cooper Childers MD Knee X-Ray 12/20/16 1458 Signed Impressions: Service Date/Time: Tuesday, December 20, 2016 15:34 - CONCLUSION: Degenerative change and a mild effusion. J Luis Talamantes MD Foot X-Ray 12/20/16 1458 Signed Impressions: Service Date/Time: Tuesday, December 20, 2016 15:29 - CONCLUSION: Chronic bony change as described above. An acute bony injury is not seen. J Luis Talamantes MD Ankle X-Ray 12/20/16 1458 Signed Impressions: Service Date/Time: Tuesday, December 20, 2016 15:31 - CONCLUSION: No acute bony abnormality is seen. There is chronic change described above. There is soft tissue swelling. J Luis Talamantes MD Objective Remarks GENERAL: Well developed, well nourished. NAD HEENT: ATNC. EOMI, PERRL. OP clear with moist mucous membranes. Neck supple. LUNGS: Clear to auscultation bilaterally. No increased work of breathing. CARDIOVASCULAR: RRR without murmur. ABD:s/nt/nd/+bs EXT: MAEX4. No c/c/e. NEURO: No focal deficits. SKIN: Color normal. No rashes. No lesions. PSYCH/MENTAL STATUS: Alert and oriented x 4 (P,P,T,E). Normal affect Procedures none A/P Problem List: (1) Weakness ICD Code: R53.1 Status: Acute (2) Polymyalgia rheumatica syndrome ICD Code: M35.3 Status: Acute (3) Gout ICD Code: M10.9 Status: Acute (4) Alcohol abuse ICD Code: F10.10 Status: Chronic (5) Atrial fibrillation ICD Code: I48.91 Status: Chronic (6) Hypokalemia ICD Code: E87.6 Status: Resolved (7) Benign hypertension ICD Code: I10 Status: Acute Assessment and Plan 66-year-old man with - Proximal upper and lower extremity weakness with elevated ESR- suspect PMR? received a dose of IV steroid in ER- currently on 15 mg daily prednisone and monitor the response. Appreciate input from neurology. Continue with physical therapy. -Gouty arthritis of the right great toe- uric acid 11; continue with prednisone as well as and management -Atrial fibrillation: Controlled on Lopressor. Patient not on oral anticoagulation secondary to increased risk of fall and noncompliance as well as history of alcohol abuse. -Hypertension: On Lopressor -Wound on the buttock; consulted wound care -Hypokalemia; replaced. -Alcohol abuse; continue thiamine and multivitamin- ativan as needed- watch for DT's counselled on drinking cessation. -DVT prophylaxis; with Osvaldo Scott MD Dec 22, 2016 08:36
[2016-12-22] MEDS ORDERED: METO-309 PO (09:53)
[2016-12-22] MEDS ORDERED: VITA100T2 PO (09:53)
[2016-12-22] MEDS ORDERED: PRED5TAB PO (09:53)
--- NOTE | 2016-12-22 09:55 | HHI.DS ---
Discharge Summary Admission Date Dec 20, 2016 at 16:45 Discharge Date: Dec 22, 2016 Admitting Diagnosis Weakness, Possible Polymyalgia Rheumatica (1) Weakness ICD Code: R53.1 (2) Polymyalgia rheumatica syndrome ICD Code: M35.3 (3) Gout ICD Code: M10.9 (4) Alcohol abuse ICD Code: F10.10 (5) Atrial fibrillation ICD Code: I48.91 (6) Hypokalemia ICD Code: E87.6 (7) Benign hypertension ICD Code: I10 Procedures none Brief History - From Admission patient is a 66 y/o male with history of atrial fibrillation, hypertension and gout, presented to ER with generalized weakness. he says that he was at his usual state of health till about ten days ago when he started to have some weakness of the right lower and upper extremities. he says that he wasn't able to stand up. he's also complaining of some weakness of the both shoulders. he denies any fever or headache. but had some chills at home. he says that he's had on and off flare up of his gout but he noticed some redness of the right great toe a few days ago. CBC/BMP: 12/20/16 1323 12/21/16 0639 Significant Findings Laboratory Tests Test 12/20/16 12/21/16 13:23 06:39 Red Blood Count 3.05 MIL/MM3 (4.50-5.90) Hemoglobin 10.2 GM/DL (13.0-17.0) Hematocrit 30.5 % (39.0-51.0) Neutrophils (%) (Auto) 84.0 % (16.0-70.0) Lymphocytes (%) (Auto) 5.4 % (9.0-44.0) Monocytes (%) (Auto) 8.3 % (0.0-8.0) Neutrophils # (Auto) 8.1 TH/MM3 (1.8-7.7) Lymphocytes # (Auto) 0.5 TH/MM3 (1.0-4.8) Erythrocyte Sedimentation Rate GREATER THAN 140 mm/hr (0-20) Potassium Level 3.0 MEQ/L (3.5-5.1) Blood Urea Nitrogen 39 MG/DL (7-18) 38 MG/DL (7-18) Estimat Glomerular Filtration 66 ML/MIN (>89) 77 ML/MIN (>89) Rate Random Glucose 113 MG/DL 166 MG/DL (74-106) (74-106) Uric Acid 11.7 MG/DL (2.6-7.2) Aspartate Amino Transf 52 U/L (15-37) (AST/SGOT) Total Creatine Kinase 358 U/L (39-308) C-Reactive Protein 9.50 MG/DL (0.00-0.30) Albumin 2.0 GM/DL (3.4-5.0) Calcium Level 8.0 MG/DL (8.5-10.1) Imaging Last Impressions Brain MRI 12/21/16 0000 Signed Impressions: Service Date/Time: Wednesday, December 21, 2016 19:45 - CONCLUSION: No significant change has occurred. Cooper Childers MD Knee X-Ray 12/20/16 1451 Signed Impressions: Service Date/Time: Tuesday, December 20, 2016 15:34 - CONCLUSION: Degenerative change and a mild effusion. J Luis Talamantes MD Foot X-Ray 12/20/16 3934 Signed Impressions: Service Date/Time: Tuesday, December 20, 2016 15:29 - CONCLUSION: Chronic bony change as described above. An acute bony injury is not seen. J Luis Talamantes MD Ankle X-Ray 12/20/16 1456 Signed Impressions: Service Date/Time: Tuesday, December 20, 2016 15:31 - CONCLUSION: No acute bony abnormality is seen. There is chronic change described above. There is soft tissue swelling. J Luis Talamantes MD PE at Discharge GENERAL: Well developed, well nourished. NAD HEENT: ATNC. EOMI, PERRL. OP clear with moist mucous membranes. Neck supple. LUNGS: Clear to auscultation bilaterally. No increased work of breathing. CARDIOVASCULAR: RRR without murmur. ABD:s/nt/nd/+bs EXT: MAEX4. No c/c/e. NEURO: No focal deficits. SKIN: Color normal. No rashes. No lesions. PSYCH/MENTAL STATUS: Alert and oriented x 4 (P,P,T,E). Normal affect Hospital Course - Proximal upper and lower extremity weakness with elevated ESR- suspect PMR? received a dose of IV steroid in ER- currently on 15 mg daily prednisone and monitor the response. Appreciate input from neurology. Continue with physical therapy. -Gouty arthritis of the right great toe- uric acid 11; continue with prednisone as well as and management -Atrial fibrillation: Controlled on Lopressor. Patient not on oral anticoagulation secondary to increased risk of fall and noncompliance as well as history of alcohol abuse. -Hypertension: On Lopressor -Wound on the buttock; consulted wound care -Hypokalemia; replaced. -Alcohol abuse; continue thiamine and multivitamin- ativan as needed- watch for DT's counselled on drinking cessation. -DVT prophylaxis; with Lovenox Pt Condition on Discharge: Stable Discharge Disposition: Discharge Home Discharge Time: <= 30 minutes Discharge Instructions DIET: Follow Instructions for: Heart Healthy Diet Activities you can perform: Regular-No Restrictions Follow up Referrals: PCP Follow-up - 1 Week New Medications: Metoprolol Tartrate (Lopressor) 50 Mg Tab 50 MG PO BID Blood Pressure Management #60 TAB Prednisone (Prednisone) 5 Mg Tab 15 MG PO DAILY Immunosuppression #7 TAB Thiamine (Vitamin B-1) 100 Mg Tab 100 MG PO DAILY Alcohol Detox #30 TAB Discontinued Medications: Metoprolol Tartrate (Metoprolol Tartrate) 50 Mg Tab 50 MG PO BID #60 Ref 0 TAB Osvaldo Garcia MD Dec 22, 2016 09:55
[2016-12-22] MEDS ORDERED: WALKER WHEELS/F1 MIS (09:56)
== END 2016-12-22 16:29 | disposition home or self-care (01) | DRG 545 ==
LOC: NEPC 12:40 → NEDA 16:45 → N04A 18:51
PROVIDERS: ADMIT Hospitalist; ATTEND Hospitalist
DX: M35.3 Polymyalgia rheumatica (principal); L89.153 Pressure ulcer of sacral region, stage 3; I48.91 Unspecified atrial fibrillation; I10 Essential (primary) hypertension; E87.6 Hypokalemia; D64.9 Anemia, unspecified; F10.20 Alcohol dependence, uncomplicated; Z86.718 Personal history of other venous thrombosis and embolism; M10.071 Idiopathic gout, right ankle and foot; Z91.14 Patient's other noncompliance with medication regimen
CPT/HCPCS: 70551; 73564; 73610; 73630; 80048; 80053; 82550; 82552; 83605; 83735; 84550; 85025; 85652; 86038; 86140; 86430; 87040; 96360; 96361; J1650; J2060; J2930; J7030; J7512